=== PATIENT | female | born 1985 | race Caucasian/White ===

== ENCOUNTER 2024-01-19 08:44 | Outpatient (REF) | payer OTHER, SELFPAY ==
--- NOTE | ~2024-01-19 | XR_ITS ---
EXAMINATION: Bilateral knee series CLINICAL INFORMATION: Pain in the right knee and left knee COMPARISON: None. TECHNIQUE: 3 views of each knee including AP upright FINDINGS: Right knee: Minimal marginal osteophytes about the medial compartment without joint space narrowing. Lateral compartment and patellofemoral compartment normal. No effusion. Left knee: Bones joints and soft tissues are normal without effusion. XR/XR knee LT 3V IMPRESSION: RIGHT KNEE: Minimal arthrosis. LEFT KNEE: Normal.
--- NOTE | ~2024-01-19 | XR_ITS ---
EXAMINATION: Bilateral knee series CLINICAL INFORMATION: Pain in the right knee and left knee COMPARISON: None. TECHNIQUE: 3 views of each knee including AP upright FINDINGS: Right knee: Minimal marginal osteophytes about the medial compartment without joint space narrowing. Lateral compartment and patellofemoral compartment normal. No effusion. Left knee: Bones joints and soft tissues are normal without effusion. XR/XR knee RT 3V IMPRESSION: RIGHT KNEE: Minimal arthrosis. LEFT KNEE: Normal.
== END 2024-01-19 08:45 | disposition home or self-care (01) ==
LOC: HO.HOSX 08:44
PROVIDERS: Visit Provider Orthopaedic Surgery
DX: M25.562 Pain in left knee (principal); M25.561 Pain in right knee
CPT/HCPCS: 73562

== ENCOUNTER 2024-01-19 13:39 | Outpatient (AMB) | payer OTHER, SELFPAY ==
--- NOTE | 2024-01-19 13:40 | A.OFFVIS_ITS ---
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 Intake Note: Jaimie is a 38 year old female who presents as a new patient with bilateral knee pains, right greater than left. The patient did undergo bilateral knee arthroscopic surgery several years ago. She denies any locking or giving way. She has taken Tylenol and anti-inflammatory medicines which gave her minimal relief. She has also done physical therapy exercises which aggravated her pain. She has has had cortisone injections which gave her minimal relief. She has also had viscosupplementation injections which gave her very good relief. She wishes to hold off on further surgery for as long as possible. 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 Physical Exam Vital Signs: BMI result Body Mass Index 31.1 Const Other: Well-nourished well-developed very friendly female awake alert and oriented x3 in no acute distress Extrem Other: Bilateral lower extremity examination shows good capillary refill, no skin lesions noted, normal sensation light touch Bilateral knee examination shows minimal effusions, palpable crepitus with range of motion, pain with range of motion, full active extension and flexion to 125 degrees, no instability Results Reviewed Results Reviewed: X-rays of the patient's bilateral knee show mild diffuse joint space narrowing, no acute bony abnormalities Assessment & Plan Assessment & Plan (1) Arthritis of left knee: Code(s): M17.12 - Unilateral primary osteoarthritis, left knee Category: Medical (2) Arthritis of right knee: Code(s): M17.11 - Unilateral primary osteoarthritis, right knee Category: Medical Plan Ms. Carpio presents with bilateral knee pains, right greater than left, due to early degenerative joint disease. I had a lengthy discussion with the patient regarding the treatment options. She wishes to hold off on further surgery for as long as possible. I agree with this plan. She has not gotten good relief from cortisone injections in the past. She has gotten good relief from viscosupplementation injections. Thus, I will see whether not her insurance company will cover a viscosupplementation injection for her right knee. At this point her left knee discomfort is tolerable to her. I will see her back once the injection is available. She will contact me prior to that time should any questions or concerns arise. I spent 22 minutes in reviewing the patient's records and imaging studies, seeing the patient and documenting in the medical record. Orders: Orders XR knee LT 3V 01/19/24 M25.562 - Pain in left knee XR knee RT 3V 01/19/24 M25.561 - Pain in right knee Coding Level of Care Code New Pt Level 2 (51041) Diagnoses Arthritis of left knee M17.12 Arthritis of right knee M17.11
[2024-01-19 14:01] VITALS: BMI 31.1
== END 2024-01-19 14:24 | disposition home or self-care (01) ==
LOC: HO.HOS 13:40
PROVIDERS: Visit Provider Orthopaedic Surgery
DX: M17.0 Bilateral primary osteoarthritis of knee (principal)
CPT/HCPCS: 99203

== ENCOUNTER 2024-02-15 08:21 | Outpatient (AMB) | payer OTHER, SELFPAY ==
--- NOTE | 2024-02-15 08:23 | A.OFFVIS_ITS ---
Vital Signs 02/15/24 08:27 Height 5 ft 2 in Weight 170 lb BMI 31.1 Intake Visit Reasons: INJ- #1 Right knee Euflexxa gel injecton Intake Note: Jaimie is a 38 year old female who presents with bilateral knee pains, right greater than left. The patient did undergo bilateral knee arthroscopic surgery several years ago. She denies any locking or giving way. She has taken Tylenol and anti-inflammatory medicines which gave her minimal relief. She has also done physical therapy exercises which aggravated her pain. She has has had cortisone injections which gave her minimal relief. She has also had viscosupplementation injections which gave her very good relief. She wishes to hold off on further surgery for as long as possible. 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 Physical Exam Vital Signs: BMI result Body Mass Index 31.1 Const Other: Well-nourished well-developed very friendly female awake alert and oriented x3 in no acute distress Extrem Other: Bilateral lower extremity examination shows good capillary refill, no skin lesions noted, normal sensation light touch Right knee examination shows a minimal effusion, mild crepitus with range of motion, negative Carlos's test, pain with range of motion, no instability Office Procedures Joint Injection/Drain Joint Injection/Drain Primary Site: right knee Prep: site was prepped using aseptic technique Injected: 20 mg of (Euflexxa viscosupplementation) and 1% plain lidocaine Procedure: The patient tolerated the procedure well Coding 69603 - Large joint Procedure code (CPT) selection complete Results Reviewed Results Reviewed: X-rays of the patient's right knee show mild joint space narrowing, no acute bony abnormalities Assessment & Plan Assessment & Plan (1) Arthritis of right knee: Code(s): M17.11 - Unilateral primary osteoarthritis, right knee Category: Medical Plan Ms. Carpio presents with right knee pain due to degenerative joint disease. I had a lengthy discussion with the patient regarding the treatment options. The risks and benefits of a series of Euflexxa viscosupplementation injections were discussed at length with the patient. The patient wished to proceed. She tolerated the 1st injection well. She will continue with her activity modifications. She will follow up next week as scheduled. I spent 20 minutes in reviewing the patient's records and imaging studies, seeing the patient and documenting in the medical record. Orders: Orders AMB Joint Injection/Aspiration Today M17.11 - Unilateral primary osteoarthrit is, right knee Coding Level of Care Code Est Pt Level 3 (08813) Diagnoses Arthritis of right knee M17.11 CPT Codes Coding - 62179 Large joint: 05538 - Large joint ([id number])
[2024-02-15 08:27] VITALS: BMI 31.1
== END 2024-02-15 08:52 | disposition home or self-care (01) ==
PROVIDERS: Visit Provider Orthopaedic Surgery
DX: M17.11 Unilateral primary osteoarthritis, right knee (principal)
CPT/HCPCS: 20610; 99213

== ENCOUNTER → 2024-02-15 08:21 | Outpatient (BNVA) | payer OTHER, SELFPAY | PROVIDERS: Visit Provider Orthopaedic Surgery | DX: M17.11 Unilateral primary osteoarthritis, right knee (principal) | CPT/HCPCS: 20610; J7323 ==

== ENCOUNTER 2024-02-22 08:24 | Outpatient (AMB) | payer OTHER, SELFPAY ==
--- NOTE | 2024-02-22 08:26 | MHC.OFFVIS ---
Intake Visit Reasons: INJ- #2 Right knee Euflexxa gel injecton Intake Note: Jaimie is a 38 year old female who presents to the office today for her #2 right knee Euflexxa gel injection. She states that she got mild relief from the 1st injection. She denies any fevers or chills. 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 Physical Exam Extrem Other: Right knee examination shows a minimal effusion, mild crepitus with range of motion, discomfort with range of motion, no instability Office Procedures Joint Injection/Drain Joint Injection/Drain Primary Site: right knee Prep: site was prepped using aseptic technique Injected: 20 mg of (Euflexxa viscosupplementation) and 1% plain lidocaine Procedure: The patient tolerated the procedure well Coding - Large joint Procedure code (CPT) selection complete Assessment & Plan Assessment & Plan (1) Arthritis of right knee: Code(s): M17.11 - Unilateral primary osteoarthritis, right knee Category: Medical Plan Ms. Carpio presents with right knee pain due to early degenerative joint disease. I had a lengthy discussion with the patient regarding the treatment options. The risks and benefits of a 2nd Euflexxa injection were discussed at length with the patient. The patient wished proceed. She tolerated the injection well. She will follow up next week as scheduled for her 3rd injection. Orders: Orders AMB Joint Injection/Aspiration Today M17.11 - Unilateral primary osteoarthritis, right knee Coding Level of Care Code Procedure Only Diagnoses Arthritis of right knee M17.11 CPT Codes Coding - Large joint: 72428 - Large joint ([id number])
== END 2024-02-22 08:36 | disposition home or self-care (01) ==
PROVIDERS: Visit Provider Orthopaedic Surgery
DX: M17.11 Unilateral primary osteoarthritis, right knee (principal)
CPT/HCPCS: 20610

== ENCOUNTER → 2024-02-22 08:24 | Outpatient (BNVA) | payer OTHER, SELFPAY | PROVIDERS: Visit Provider Orthopaedic Surgery | DX: M17.11 Unilateral primary osteoarthritis, right knee (principal) | CPT/HCPCS: 20610; J7323 ==

== ENCOUNTER 2024-02-29 08:27 | Outpatient (AMB) | payer OTHER, SELFPAY ==
--- NOTE | 2024-02-29 08:35 | A.OFFVIS_ITS ---
Vital Signs 02/29/24 08:36 Height 5 ft 2 in Weight 170 lb BMI 31.1 Intake Visit Reasons: INJ- #3 Right knee Euflexxa gel injecton Intake Note: Jaimie is a 38 year old female who presents today for her Right Knee Euflexxa Injection #3. This is her final injection of the series. Patient reports that she has not felt any changes in her symptoms, but understands that this can take some time for effects to be felt. 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 Physical Exam Vital Signs: BMI result Body Mass Index 31.1 Extrem Other: Right knee examination shows a minimal effusion, mild crepitus with range of motion, no instability Office Procedures Joint Injection/Drain Joint Injection/Drain Primary Site: right knee Prep: site was prepped using aseptic technique Injected: 20 mg of (Euflexxa viscosupplementation) and 1% plain lidocaine Procedure: The patient tolerated the procedure well Coding 83890 - Large joint Procedure code (CPT) selection complete Assessment & Plan Assessment & Plan (1) Arthritis of right knee: Code(s): M17.11 - Unilateral primary osteoarthritis, right knee Category: Medical Plan Mrs. Carpio presents with right knee pain due to early degenerative joint disease. The risks and benefits of a 3rd Euflexxa viscosupplementation injection were discussed at length with the patient. The patient wished to proceed. She tolerated the injection well. She will continue with her home exercise program. She will follow up with me on an as-needed basis should her symptoms not plateau at an unacceptable level over the next few months. Orders: Orders AMB Joint Injection/Aspiration Today M17.11 - Unilateral primary osteoarthritis, right knee Coding Level of Care Code Procedure Only Diagnoses Arthritis of right knee M17.11 CPT Codes Coding - 87713 Large joint: 16007 - Large joint ([id number])
[2024-02-29 08:36] VITALS: BMI 31.1
== END 2024-02-29 09:04 | disposition home or self-care (01) ==
PROVIDERS: Visit Provider Orthopaedic Surgery
DX: M17.11 Unilateral primary osteoarthritis, right knee (principal)
CPT/HCPCS: 20610

== ENCOUNTER → 2024-02-29 08:27 | Outpatient (BNVA) | payer OTHER, SELFPAY | PROVIDERS: Visit Provider Orthopaedic Surgery | DX: M17.11 Unilateral primary osteoarthritis, right knee (principal) | CPT/HCPCS: 20610; J7323 ==